=== PATIENT | male | born 1935 | race African-American/Black ===

== ENCOUNTER 2023-10-15 13:20 | Inpatient (IN) | payer OTHER ==
[~2023-10-15] VITALS: Ht 172.7 cm; Wt 68.5 kg
[2023-10-15] MEDS ORDERED: DIGO125T PO (13:33)
[2023-10-15] MEDS ORDERED: MIDO5TAB5 PO (13:33)
[2023-10-15] MEDS ORDERED: POTA-88 PO (13:33)
[2023-10-15] MEDS ORDERED: BUME2TAB7 PO (13:33)
[2023-10-15 14:14] LABS: BASOPHILS % (AUTO) 0.4 % (0.0-2.0); EOSINOPHILS % (AUTO) 0.1 % (0.0-7.0); HEMATOCRIT 30.4 % (36.7-47.1); HEMOGLOBIN 9.4 g/dL (12.5-16.3); LYMPHOCYTES # (AUTO) 0.3 K/uL (0.8-4.8); LYMPHOCYTES % (AUTO) 2.6 % (20.5-51.5); MEAN CORPUSCULAR HEMOGLOBIN 28.1 uug (23.8-33.4); MEAN CORPUSCULAR HGB CONC 31 g/dL (32.5-36.3); MEAN CORPUSCULAR VOLUME 91.3 fL (73.0-96.2); MONOCYTES # (AUTO) 0.7 K/uL (0.1-1.30); NEUTROPHILS % (AUTO) 90.9 % (38.5-71.5); PLATELET COUNT (AUTO) 52 K/uL (152-348); RED BLOOD CELL COUNT(AUTO) 3.33 MIL/uL (4.06-5.63); RED CELL DISTRIBUTION WIDTH 18.5 % (12.1-16.2); WHITE BLOOD COUNT (AUTO) 12.1 K/uL (3.6-10.2)
[2023-10-15 14:34] LABS: ALANINE AMINOTRANSFERASE 26 U/L (16-63); ALBUMIN 2.9 g/dL (3.4-5.0); ALKALINE PHOSPHATASE 112 U/L (50-136); ASPARTATE AMINOTRANSFERASE 51 U/L (15-37); BILIRUBIN,TOTAL 5.3 mg/dL (0.2-1.0); CALCIUM 9.4 mg/dL (8.5-10.1); CARBON DIOXIDE 24 mmol/L (21-32); CHLORIDE 110 mmol/L (98-107); CREATININE 3.5 mg/dL (0.6-1.3); DIGOXIN 0.5 ng/mL (0.9-2.0); GLUCOSE 56 mg/dL (74-106); POTASSIUM 5.3 mmol/L (3.5-5.1); SODIUM SERUM 145 mmol/L (136-145); TOTAL PROTEIN, SERUM 6.8 g/dL (6.4-8.2)
[2023-10-15 14:39] LABS: NT-PRO BNP 39967 pg/mL (0-125)
[2023-10-15 14:42] LABS: UREA NITROGEN, BLOOD 100 mg/dL (7-18)
[2023-10-15] MEDS ORDERED: DEXTROSE 50% 50 ML DISP.SYRIN IV ONE ×2 (16:00→18:45)
[2023-10-15] MEDS ORDERED: FUROSEMIDE 20 MG/2 ML VIAL IVP ONE (16:00)
[2023-10-15] MEDS ORDERED: INSULIN REGULAR, HUMAN 300 UNIT/3 ML VIAL IV ONE (16:00)
[2023-10-15] MEDS ORDERED: SODIUM BICARBONATE 8.4% 50 MEQ/50 ML DISP.SYRIN IV ONE ×2 (16:00→16:19)
[2023-10-15] MEDS ORDERED: FUROSEMIDE 40 MG/4 ML VIAL ONE (16:15)
[2023-10-15] MEDS ORDERED: DEXTROSE 50% 50 ML DISP.SYRIN ONE ×4 (16:17→19:46)
[2023-10-15] MEDS ORDERED: INSULIN REGULAR, HUMAN 300 UNIT/3 ML VIAL ONE (16:20)
[2023-10-15] MEDS ORDERED: CEFEPIME HCL 2 G in IV DEXTROSE 5% 100 ML IV ONE (18:45)
[2023-10-15 18:55] LABS: *CLARITY,URINE CLEAR (CLEAR); *COLOR,URINE DARK YELLOW (YELLOW); *KETONES,URINE TRACE (NEGATIVE); *PROTEIN,URINE 2+ (NEGATIVE); LEUKOCYTE ESTERASE ,URINE NEGATIVE (NEGATIVE); NITRITE, URINE NEGATIVE (NEGATIVE); UGLUCOSE NEGATIVE (NEGATIVE)
[2023-10-15 18:59] LABS: *BILIRUBIN,URIN 2+ (NEGATIVE); *BLOOD, URINE TRACE (NEGATIVE)
[2023-10-15 19:05] LABS: BACTERIA,URINE MANY /HPF (NONE SEEN); SQUAMOUS EPITHELIAL CELL,UR MANY /HPF (NONE SEEN); WBC,URINE 0-3 /HPF (0-3)
[2023-10-15 19:52] LABS: LACTIC ACID 2.7 mmol/L (0.4-2.0)
[2023-10-15] MEDS ORDERED: CEFEPIME HCL 1 G VIAL ONE (19:53)
[2023-10-15 20:10] LABS: BAND % (MANUAL) 26 % (0-10); LYMPHOCYTES % (MANUAL) 2 % (20-40); MONOCYTES % (MANUAL) 2 % (2-10); NEUTROPHILS % (MANUAL) 69 % (42-75)
[2023-10-15 20:11] LABS: ANISOCYTOSIS 2+; HYPOCHROMASIA 2+; METAMYELOCYTES % 1 % (0-1); PLATELET ESTIMATE DECREASED
[2023-10-15 20:14] LABS: DIFFERENTIAL COMMENT N-RBCs
[2023-10-15] MEDS ORDERED: ACETAMINOPHEN 325 MG TABLET PO PRN (20:15)
[2023-10-15] MEDS ORDERED: MAGNESIUM HYDROXIDE 30 ML LIQUID UDC PO PRN (20:15)
[2023-10-15] MEDS ORDERED: REMEDY ESSENTIAL ZINC PASTE 113 GM TP PRN (20:15)
[2023-10-15] MEDS ORDERED: ONDANSETRON 4 MG/2 ML VIAL IV PRN (20:15)
[2023-10-15] MEDS ORDERED: HEPARIN SODIUM,PORCINE 5,000 UNITS/ML VIAL SQ SCH (21:00)
[2023-10-15] MEDS: DEXTROSE 50% 50 ML DISP.SYRIN IV PRN ×2 (21:16→22:21)
[2023-10-15] MEDS: BLOOD SUGAR DIAGNOSTIC 1 EACH STRIP VI SCH ×2 (22:00→23:01)
[2023-10-15] MEDS ORDERED: CEFEPIME HCL 1 G in IV DEXTROSE 5% 50 ML IV SCH (22:00)
[2023-10-15] MEDS ORDERED: MISCELLANEOUS MED IV PRN (22:30)
[2023-10-15 23:00] VITALS: BP 89/68; TEMP 96; O2SAT 92
[2023-10-15] MEDS ORDERED: IV 10% DEXTROSE 1,000 ML IV PRN ×2 (23:15)
[2023-10-15 23:23] LABS: THYROID STIMULATING HORMONE 4.656 mIU/mL (0.358-3.740)
[2023-10-16] VITALS (31 sets, daily range): BP systolic 86–112; BP diastolic 45–72; TEMP 96–97.2; O2SAT 78–100
[2023-10-16] MEDS: BLOOD SUGAR DIAGNOSTIC 1 EACH STRIP VI SCH ×9 (01:00→17:42)
[2023-10-16] MEDS: IPRATROPIUM BROMIDE 0.5 MG/2.5 ML NEBU NEB SCH ×3 (01:30→12:46)
[2023-10-16] MEDS: ALBUTEROL SULFATE 2.5 MG/ 0.5 ML NEBU NEB SCH ×3 (01:31→12:46)
[2023-10-16] MEDS: DEXTROSE 50% 50 ML DISP.SYRIN IV PRN ×4 (02:10→09:13)
[2023-10-16] MEDS ORDERED: FUROSEMIDE 40 MG/4 ML VIAL IV ONE (07:30)
[2023-10-16 08:04] LABS: ABG BASE EXCESS -3.9 mmol/L (-2.0-2.0); ABG HCO3 20.7 mmol/L (22.0-26.0); ABG PCO2 35.6 mmHg (35.0-48.0); ABG PH 7.382 (7.340-7.440); ABG PO2 196.6 mmHg (75.0-100.0); ABG SITE RIGHT RADIAL; ABG TOTAL HEMOGLOBIN 9.6 G/dL (14.0-18.0); AaDO2 99.3 mmHg; COHb 0.1 % (0.0-3.9); MetHb 0.3 % (0.0-1.5); O2Hb 98.8 % (94.0-97.0)
[2023-10-16] MEDS ORDERED: PANTOPRAZOLE SODIUM 40 MG VIAL IV SCH (09:00)
[2023-10-16] MEDS ORDERED: DEXTROSE 50% 50 ML DISP.SYRIN ONE (09:11)
[2023-10-16] MEDS ORDERED: ACETYLCYSTEINE 10% 4ML VIAL NEB SCH (10:34)
[2023-10-16] MEDS ORDERED: methylPREDNISolone SOD SUCC 125 MG/2 ML VIAL IV SCH (10:35)
[2023-10-16] MEDS ORDERED: IPRATROPIUM BROMIDE 0.5 MG/2.5 ML NEBU NEB SCH (13:30)
[2023-10-16 13:43] LABS: BASOPHILS % (AUTO) 0.2 % (0.0-2.0); DIFFERENTIAL COMMENT 1; HEMATOCRIT 27.6 % (36.7-47.1); HEMOGLOBIN 8.7 g/dL (12.5-16.3); LYMPHOCYTES # (AUTO) 0.3 K/uL (0.8-4.8); LYMPHOCYTES % (AUTO) 2.2 % (20.5-51.5); MEAN CORPUSCULAR HEMOGLOBIN 28.3 uug (23.8-33.4); MEAN CORPUSCULAR HGB CONC 32 g/dL (32.5-36.3); MEAN CORPUSCULAR VOLUME 89.2 fL (73.0-96.2); MONOCYTES # (AUTO) 0.7 K/uL (0.1-1.30); MONOCYTES % (AUTO) 5.4 % (0.0-11.0); NEUTROPHILS # (AUTO) 11.3 K/uL (1.8-8.9); NEUTROPHILS % (AUTO) 92.2 % (38.5-71.5); RED BLOOD CELL COUNT(AUTO) 3.09 MIL/uL (4.06-5.63); RED CELL DISTRIBUTION WIDTH 18.4 % (12.1-16.2); WHITE BLOOD COUNT (AUTO) 12.3 K/uL (3.6-10.2)
[2023-10-16 13:44] LABS: PLATELET COUNT (AUTO) 45 K/uL (152-348)
[2023-10-16 16:03] LABS: ALANINE AMINOTRANSFERASE 27 U/L (16-63); ALBUMIN 2.5 g/dL (3.4-5.0); ALKALINE PHOSPHATASE 97 U/L (50-136); ASPARTATE AMINOTRANSFERASE 52 U/L (15-37); BILIRUBIN,TOTAL 3.4 mg/dL (0.2-1.0); CALCIUM 8.5 mg/dL (8.5-10.1); CARBON DIOXIDE 23 mmol/L (21-32); CHLORIDE 105 mmol/L (98-107); CREATININE 3.8 mg/dL (0.6-1.3); GLUCOSE 88 mg/dL (74-106); MAGNESIUM 2.3 mg/dL (1.8-2.4); PHOSPHOROUS 4.1 mg/dL (2.5-4.9); SODIUM SERUM 141 mmol/L (136-145); TOTAL PROTEIN, SERUM 6.5 g/dL (6.4-8.2)
[2023-10-16 16:05] LABS: UREA NITROGEN, BLOOD 108 mg/dL (7-18)
[2023-10-16 16:32] LABS: CHOLESTEROL 129 mg/dL (<200); HDL CHOLESTEROL 22 mg/dL (40-60); TRIGLYCERIDES 44 MG/DL (30-150)
[2023-10-16 17:23] LABS: NT-PRO BNP 41074 pg/mL (0-125)
[2023-10-16 18:02] LABS: NEUTROPHILS % (MANUAL) 0 % (42-75)
[2023-10-16 18:03] LABS: LYMPHOCYTES % (MANUAL) 0 % (20-40)
[2023-10-16] MEDS ORDERED: MORPHINE SULFATE PF IV DRIP 100 MG in IV DEXTROSE 5% 96 ML IV PRN (18:15)
[2023-10-16 18:26] LABS: *BILIRUBIN,URIN 2+ (NEGATIVE); *BLOOD, URINE 2+ (NEGATIVE); *CLARITY,URINE CLEAR (CLEAR); *COLOR,URINE AMBER (YELLOW); *KETONES,URINE TRACE (NEGATIVE); *PROTEIN,URINE 3+ (NEGATIVE); LEUKOCYTE ESTERASE ,URINE NEGATIVE (NEGATIVE); NITRITE, URINE NEGATIVE (NEGATIVE); UGLUCOSE TRACE (NEGATIVE)
[2023-10-16 18:41] LABS: *CREATININE,URINE 162.1 mg/dL (30-125); *URINE TOTAL PROTEIN RANDOM 377.2 mg/dL (<150/24HR)
[2023-10-16 19:18] LABS: BACTERIA,URINE MANY /HPF (NONE SEEN); CALCIUM OXALATE CRYSTALS,UR MODERATE /HPF (NONE SEEN); SQUAMOUS EPITHELIAL CELL,UR FEW /HPF (NONE SEEN); WBC,URINE 0-3 /HPF (0-3)
[2023-10-16] MEDS ORDERED: CEFEPIME HCL 1 G in IV DEXTROSE 5% 50 ML IV SCH (20:00)
[2023-10-17] VITALS: BP 65/46
[2023-10-17 00:30] VITALS: BP 60/43
[2023-10-17 00:56] VITALS: BP 0/0
== END 2023-10-17 01:00 | DRG 871 ==
LOC: ER 13:20 → CCU 20:59
PROVIDERS: ADMIT Nurse Practitioner Acute Care; ATTEND Internal Medicine
PROC: 05HY33Z Insertion of Infusion Device into Upper Vein, Percutaneous Approach (ICD-10-PCS; principal; 2023-10-16)
DX: A41.9 Sepsis, unspecified organism (principal); J96.01 Acute respiratory failure with hypoxia; J69.0 Pneumonitis due to inhalation of food and vomit; E43 Unspecified severe protein-calorie malnutrition; R17 Unspecified jaundice; G92.8 Other toxic encephalopathy; J18.9 Pneumonia, unspecified organism; Z51.5 Encounter for palliative care; Z66 Do not resuscitate; N17.0 Acute kidney failure with tubular necrosis; I48.20 Chronic atrial fibrillation, unspecified; I13.0 Hypertensive heart and chronic kidney disease with heart failure and stage 1 through stage 4 chronic kidney disease, or unspecified chronic kidney disease; J47.0 Bronchiectasis with acute lower respiratory infection; R18.8 Other ascites; J98.11 Atelectasis; I50.813 Acute on chronic right heart failure; R65.20 Severe sepsis without septic shock; E87.5 Hyperkalemia; D69.6 Thrombocytopenia, unspecified; N18.9 Chronic kidney disease, unspecified; Z68.23 Body mass index [BMI] 23.0-23.9, adult; I70.0 Atherosclerosis of aorta; I25.10 Atherosclerotic heart disease of native coronary artery without angina pectoris; E16.2 Hypoglycemia, unspecified; M89.8X9 Other specified disorders of bone, unspecified site; D64.9 Anemia, unspecified
CPT/HCPCS: 36415; 36600; 70030-TC; 71045; 76770; 83605; 83735; 84100; 84300; 84443; 84484; 85025; 85730; 87040; 87077; 93005; 93307; 94664; A4606; A4663; C9113; G0378; J0692; J1815; J1940; J2274; J2930; J3490; J3590; J7040